=== PATIENT | female | born 1995 | race African-American/Black ===

== ENCOUNTER 2019-10-20 02:22 | Emergency (ER) | payer MEDICAID ==
[~2019-10-20] VITALS: Ht 165.1 cm; Wt 83.0 kg
[2019-10-20 02:51] VITALS: BP 128/76
[2019-10-20] MEDS ORDERED: ONDANSETRON HCL 4MG/2ML INJ IV STA (03:21)
[2019-10-20] MEDS ORDERED: SODIUM CHLORIDE 0.9% 1,000 ML IV ONE (03:21)
[2019-10-20 04:03] LABS: BASOPHILS % 0.8 % (0.0-2.0); CHLORIDE 106 mEq/L (98-107); CLARITY URINE CLEAR (CLEAR); COLOR URINE YELLOW (YELLOW); HEMATOCRIT. 40.2 % (36.0-48.0); HEMOGLOBIN. 13.7 g/dL (12.0-16.0); KETONES URINE NEGATIVE (NEGATIVE); LEUKOCYTE ESTERASE URINE 3+ (NEGATIVE); LYMPHOCYTES % 47.2 % (20.0-50.0); MEAN CORPUSCULAR HEMOGLOBIN 29.6 pg (28.0-32.0); MEAN PLATELET VOLUME 8.3 fl (7.4-10.4); MONOCYTES % 4.4 % (2.0-8.0); NEUTROPHILS % 46.6 % (40.0-76.0); NITRITE URINE NEGATIVE (NEGATIVE); OCCULT BLOOD URINE NEGATIVE (NEGATIVE); PH URINE 8.5 (4.5-8.0); PLATELET 257 x1000/uL (130-400); PROTEIN URINE NEGATIVE (NEGATIVE); RED BLOOD CELL COUNT 4.62 mill/uL (4.2-5.4); SPECIFIC GRAVITY URINE 1.008 (1.005-1.030); UROBILINOGEN URINE 0.2 E.U./dL (0.2-1.0)
[2019-10-20 05:20] LABS: B-HCG QUANTITATIVE 87930 mIU/mL (<3)
== END 2019-10-20 05:37 | disposition home or self-care (01) ==
LOC: ER 02:22
DX: O21.9 Vomiting of pregnancy, unspecified (principal); O26.899 Other specified pregnancy related conditions, unspecified trimester; K29.70 Gastritis, unspecified, without bleeding; J45.909 Unspecified asthma, uncomplicated; Z91.040 Latex allergy status; Z88.5 Allergy status to narcotic agent; Z3A.00 Weeks of gestation of pregnancy not specified
CPT/HCPCS: 36415; 80053; 81003; 83690; 84702; 85025; 87086; 96361; 96374; 99283; J2405; J7030

== ENCOUNTER 2020-01-18 19:36 | Observation (INO) | payer MEDICAID ==
[~2020-01-18] VITALS: Ht 165.1 cm; Wt 90.7 kg
[2020-01-18] MEDS ORDERED: PREN-182 PO (20:24)
[2020-01-18] MEDS ORDERED: ONDANSETRON HCL 4MG/2ML INJ IV PRN (21:15)
[2020-01-18] MEDS: DEXT 5%/LACTATED RINGERS 1,000 ML IV SCH (22:07)
[2020-01-18 22:44] LABS: CLARITY URINE CLEAR (CLEAR); COLOR URINE YELLOW (YELLOW); KETONES URINE NEGATIVE (NEGATIVE); LEUKOCYTE ESTERASE URINE 3+ (NEGATIVE); NITRITE URINE NEGATIVE (NEGATIVE); OCCULT BLOOD URINE NEGATIVE (NEGATIVE); PROTEIN URINE NEGATIVE (NEGATIVE); SPECIFIC GRAVITY URINE 1.007 (1.005-1.030); UROBILINOGEN URINE 0.2 E.U./dL (0.2-1.0)
[2020-01-18] MEDS ORDERED: ACETAMINOPHEN 650MG SUPP PR PRN (23:43)
[2020-01-18] MEDS ORDERED: CEFAZOLIN 2,000 MG in DEXT 5% WATER 100 ML IV NR (23:53)
[2020-01-19] MEDS ORDERED: METOCLOPRAMIDE HCL 10MG/2ML VIAL IV SCH
[2020-01-19] MEDS: DEXT 5%/LACTATED RINGERS 1,000 ML IV SCH (00:04)
== END 2020-01-19 01:30 | disposition home or self-care (01) ==
LOC: 8 EST LDRP 19:36
PROVIDERS: ADMIT Obstetrics & Gynecology; ATTEND Obstetrics & Gynecology
DX: O21.2 Late vomiting of pregnancy (principal); O99.89 Other specified diseases and conditions complicating pregnancy, childbirth and the puerperium; M54.5 Low back pain; O62.9 Abnormality of forces of labor, unspecified; O26.892 Other specified pregnancy related conditions, second trimester; R35.0 Frequency of micturition; R30.9 Painful micturition, unspecified; Z3A.24 24 weeks gestation of pregnancy
CPT/HCPCS: 36415; 76805; 76817; 80051; 81003; 96361; 96365; 96375; 99281; G0378; J0690; J2405; J2765; J7060; 96360

== ENCOUNTER 2020-02-27 17:25 | Observation (INO) | payer MEDICAID ==
[~2020-02-27] VITALS: Ht 165.1 cm; Wt 91.6 kg
[~2020-02-27 17:25] MED LIST: PREN-182 PO
[2020-02-27] MEDS ORDERED: ONDANSETRON HCL 4MG/2ML INJ IV NR (18:58)
[2020-02-27] MEDS ORDERED: SODIUM CHLORIDE 0.9% 1,000 ML IV SCH (19:00)
== END 2020-02-27 21:30 | disposition home or self-care (01) ==
LOC: 8 EST LDRP 17:25
PROVIDERS: ADMIT Specialist; ATTEND Specialist
DX: O21.8 Other vomiting complicating pregnancy (principal); Z3A.29 29 weeks gestation of pregnancy
CPT/HCPCS: 59025; 96361; 96374; G0378; J2405; 96360; 99281

== ENCOUNTER 2021-06-23 13:09 | Emergency (ER) | payer MEDICAID ==
[~2021-06-23] VITALS: Ht 165.1 cm; Wt 82.0 kg
[2021-06-23 13:16] VITALS: BP 113/68
== END 2021-06-23 15:28 | disposition home or self-care (01) ==
LOC: ER 13:09
DX: J06.9 Acute upper respiratory infection, unspecified (principal); J45.909 Unspecified asthma, uncomplicated; Z20.822 Contact with and (suspected) exposure to COVID-19; Z88.5 Allergy status to narcotic agent
CPT/HCPCS: 71045; 87804; 99284; C9803; U0003; U0005

== ENCOUNTER 2021-07-02 03:47 | Emergency (ER) | payer MEDICAID ==
[~2021-07-02] VITALS: Ht 165.1 cm; Wt 83.0 kg
[2021-07-02 04:01] VITALS: BP 119/77
[2021-07-02 04:50] LABS: BASOPHILS % 0.9 % (0.0-2.0); EOSINOPHILS % 0.3 % (0.0-5.0); HEMATOCRIT. 36.7 % (36.0-48.0); HEMOGLOBIN. 11.8 g/dL (12.0-16.0); MEAN CORPUSCULAR HEMOGLOBIN 25.7 pg (28.0-32.0); MEAN CORPUSCULAR VOLUME 79.8 fL (81.0-99.0); MEAN PLATELET VOLUME 7.9 fl (7.4-10.4); MONOCYTES % 6.4 % (2.0-8.0); NEUTROPHILS % 42.4 % (40.0-76.0); PLATELET 302 x1000/uL (130-400); RED CELL DISTRIBUTION WIDTH 17.2 % (11.6-14.6)
[2021-07-02 05:06] LABS: CHLORIDE 108 mEq/L (98-107)
[2021-07-02] MEDS ORDERED: MORPHINE SULFATE 4 MG/ML CPJ (NOT FOR IM USE) IV STA (05:46)
[2021-07-02] MEDS ORDERED: ONDANSETRON HCL 4MG/2ML INJ IV STA (05:46)
[2021-07-02] MEDS ORDERED: SODIUM CHLORIDE 0.9% 1,000 ML IV ONE (06:00)
== END 2021-07-02 16:00 | disposition home or self-care (01) ==
LOC: ER 03:47
DX: R10.32 Left lower quadrant pain (principal)
CPT/HCPCS: 36415; 76830; 76856; 80053; 83690; 84702; 85025; 99284; J7030

== ENCOUNTER 2021-08-10 14:49 | Emergency (ER) | payer MEDICAID ==
[~2021-08-10] VITALS: Ht 165.1 cm; Wt 92.0 kg
[2021-08-10] MEDS ORDERED: ACETAMINOPHEN 325MG TABLET PO STA (14:57)
[2021-08-10] MEDS ORDERED: ONDANSETRON HCL 4MG/2ML INJ IV STA (14:57)
[2021-08-10] MEDS ORDERED: SODIUM CHLORIDE 0.9% 1,000 ML IV ONE (15:00)
[2021-08-10 17:21] LABS: BASOPHILS % 0.3 % (0.0-2.0); EOSINOPHILS % 0.2 % (0.0-5.0); HEMATOCRIT. 39.8 % (36.0-48.0); HEMOGLOBIN. 13.1 g/dL (12.0-16.0); LYMPHOCYTES % 17.3 % (20.0-50.0); MEAN CORPUSCULAR HEMOGLOBIN 26.6 pg (28.0-32.0); MEAN CORPUSCULAR VOLUME 81.2 fL (81.0-99.0); MEAN PLATELET VOLUME 8.1 fl (7.4-10.4); MONOCYTES % 5.8 % (2.0-8.0); NEUTROPHILS % 76.4 % (40.0-76.0); PLATELET 290 x1000/uL (130-400); RED BLOOD CELL COUNT 4.91 mill/uL (4.2-5.4); RED CELL DISTRIBUTION WIDTH 17.6 % (11.6-14.6)
[2021-08-10 17:27] LABS: CHLORIDE 106 mEq/L (98-107)
[2021-08-10 17:50] LABS: B-HCG QUANTITATIVE 82672 mIU/mL (<3)
[2021-08-10 20:13] VITALS: BP 128/80
== END 2021-08-10 20:17 | disposition home or self-care (01) ==
LOC: ER 14:49
DX: O26.891 Other specified pregnancy related conditions, first trimester (principal); K52.1 Toxic gastroenteritis and colitis; A05.9 Bacterial foodborne intoxication, unspecified; E87.6 Hypokalemia; J45.909 Unspecified asthma, uncomplicated; R00.0 Tachycardia, unspecified; Z3A.11 11 weeks gestation of pregnancy; Z98.890 Other specified postprocedural states; Z88.5 Allergy status to narcotic agent; Z91.040 Latex allergy status
CPT/HCPCS: 36415; 76801; 76817; 80053; 83690; 84702; 85025; 86850; 86900; 86901; 96361; 96374; 99284; J2405; Z7610

== ENCOUNTER 2021-11-11 20:07 | Emergency (ER) | payer MEDICAID ==
[~2021-11-11 20:07] MED LIST changes: +FERR325T6 PO
== END 2021-11-11 22:10 | disposition left against medical advice (07) ==
LOC: ER 20:07
DX: Z53.21 Procedure and treatment not carried out due to patient leaving prior to being seen by health care provider (principal)